=== PATIENT | male | born 2000 | race African-American/Black ===

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

== ENCOUNTER 2020-12-21 00:50 | Emergency (ER) | payer OTHER ==
[~2020-12-21] VITALS: Ht 167.6 cm; Wt 74.8 kg
--- NOTE | ~2020-12-21 | EMS ---
[address] [address] EMS Patient Care Report Name: CORETTA CHIRINOS Room #: DEP SALAS Parsons#: [id number] Admission: 12/21/20 Attend Phys: Discharge: 12/21/20 Date of : [birth year] Report #: [id number] THIS REPORT FOR: //name// Report Transmitted: 12/24/2020 12:35 EMS Care Summary [place], [place]/[facility] Incident [id number] @ 12/21/2020 00:09 Incident Location [address] [place] [address] Patient CORETTA CHIRINOS Male, 20 Years 2000 Patient Address [address] [place] [address] Patient History Asthma, Patient Medications Albuterol, Chief Complaint Asthma Disposition Transported No Lights/[place] Dispatch Reason Breathing Problem Transported To [facility] Narrative M42 arrived on scene to find the patient walking out to the ambulance is obvious respiratory distress. The patient had audible wheezing. Patient said he had a history of asthma and had been without his medication for several days. Patient said he felt short of breath all day. Patient was placed on a breathing treatment. After several minutes the patient said he felt like he was able to breath better, but still felt short of breath. Patient still had [address] [address] EMS Patient Care Report Name: CORETTA CHIRINOS Room #: DEP Issa#: [id number] Admission: 12/21/20 Attend Phys: Discharge: 12/21/20 Date of : [birth year] Report #: [id number] wheezing after the treatment and was given a second treatment of albuterol. Patient was moved to the cot and secured with seat belts. En route to the hospital the patient felt like he was able to breath easier but still had wheezing. M42 arrived on scene of the hospital and patient care was transferred to the RN. Initial Vitals @00:34P: 131,CO: 2,SpO2: 98, @00:26P: 116,BP: 151/85,CO: 2,SpO2: 100, @00:31P: 137,R: 20,BP: 100/69,Pain: 0/10,GCS: 15,CO: 2,SpO2: 100,Revised Trauma: 12, @00:18P: 120,R: 26,BP: 139/86,Pain: 0/10,GCS: 15,SpO2: 98,Revised Trauma: 12, Assessments @00:14MENTAL:No Abnormalities,SKIN:No Abnormalities,HEENT:Head/Face: No Abnormalities,Eyes: No Abnormalities,Neck/Airway: No Abnormalities,LUNG SOUNDS:ABDOMEN:PELVIS//GI:No Abnormalities,EXTREMITIES:Left Arm: No Abnormalities,Right Arm: No Abnormalities,Left Leg: No Abnormalities,Right Leg: No Abnormalities,PULSE:NEURO:No Abnormalities,@00:24MENTAL:No Abnormalities,SKIN:No Abnormalities,HEENT:Head/Face: No Abnormalities,Eyes: No Abnormalities,Neck/Airway: No Abnormalities,LUNG SOUNDS:General: No Abnormalities,Left Upper: No Abnormalities,Right Upper: No Abnormalities,Left Lower: No Abnormalities,Right Lower: No Abnormalities,ABDOMEN:General: No Abnormalities,Left Upper: No Abnormalities,Right Upper: No Abnormalities,Left Lower: No Abnormalities,Right Lower: No Abnormalities,PELVIS//GI:No Abnormalities,EXTREMITIES:Left Arm: No Abnormalities,Right Arm: No Abnormalities,Left Leg: No Abnormalities,Right Leg: No Abnormalities,PULSE:NEURO:No Abnormalities, Impression Asthma Procedures @00:14ALS AssessmentResponse: UnchangedSucceeded@00:16Albuterol - 5 Milligrams (mg) - NebulizedResponse: Improved@00:16Oxygen FlowRate: 8 Device: Nebulizer Response: ImprovedSucceeded@00:34Saline Lock 10cc (20 ga) Site: Antecubital-RightResponse: UnchangedSucceeded@00:39Solu-Medrol - 125 Milligrams (mg) - Intravenous (IV)Response: Unchanged Timeline 00:08,Call Received 00:08,Dispatch Notified 00:09,Dispatched 00:10,En Route 00:13,On Scene 00:14,At Patient [address] [address] EMS Patient Care Report Name: CHIRINOSCORETTA Room #: DEP SALAS Parsons#: [id number] Admission: 12/21/20 Attend Phys: Discharge: 12/21/20 Date of : [birth year] Report #: [id number] 00:14,ALS Assessment,Response: UnchangedSucceeded, 00:16,Albuterol - 5 Milligrams (mg) - Nebulized,Response: Improved 00:16,Oxygen FlowRate: 8 Device: Nebulizer Response: ImprovedSucceeded, 00:18,BP: 139/86 M,PULSE: 120,RR: 26 R,SPO2: 98 Ox,ETCO2: ,BG: ,PAIN: 0,GCS: 15, 00:26,BP: 151/85 M,PULSE: 116,RR: R,SPO2: 100 Ox,ETCO2: ,BG: ,PAIN: ,GCS: , 00:31,BP: 100/69 M,PULSE: 137,RR: 20 R,SPO2: 100 Ox,ETCO2: ,BG: ,PAIN: 0,GCS: 15, 00:33,Depart Scene 00:34,BP: / M,PULSE: 131,RR: R,SPO2: 98 Ox,ETCO2: ,BG: ,PAIN: ,GCS: , 00:34,Saline Lock 10cc 20 ga Site: Antecubital-Right,Response: UnchangedSucceeded, 00:39,Solu-Medrol - 125 Milligrams (mg) - Intravenous (IV),Response: Unchanged 00:47,At Destination 01:08,Call Closed Disclaimer [email or web address] Copyright 2020 [employer] This EMS Care Summary contains data elements from the applicable legal record (which may be displayed differently). It is designed to provide pertinent information for the following purposes: continuity of care, clinical quality, and state data reporting. The complete legal record is available to ED staff and administrators of the receiving hospital in [employer]'s Patient Tracker. All data is provided "as is."
[2020-12-21 01:35] LABS: ABSOLUTE NEUTROPHILS 6.3 thou/uL (1.4-8.2); BASOPHILS 1.2 % (0.0-2.0); EOSINOPHILS 8.9 % (0.0-3.0); HEMATOCRIT 43.8 % (42.0-52.0); HEMOGLOBIN 14.2 gm/dL (14.0-18.0); LYMPHOCYTES 30.4 % (24.0-44.0); MCH 28.4 pg (26.0-34.0); MCHC 32.3 g/dL (28.0-37.0); MCV 87.7 fL (80.0-100.0); MONOCYTES 9.1 % (1.0-8.0); PLATELET COUNT 327 thou/uL (150-400); POLYS 50.4 % (36.0-66.0); RBC 4.99 mil/uL (4.50-6.00); RDW 15.1 % (10.5-14.5); WBC 12.4 thou/uL (4.0-11.0)
[2020-12-21 01:42] LABS: CALCIUM 8.7 mg/dL (8.5-10.1); POTASSIUM 3.4 mmol/L (3.5-5.1)
[2020-12-21] MEDS ORDERED: ALBUTEROL2.5 MG/31 INH (02:33)
[2020-12-21] MEDS ORDERED: PREDNISONE 20 M20 MG PO (02:33)
[2020-12-21] MEDS ORDERED: PROAIR HFA8.5 GM INH (02:33)
[2020-12-21 03:54] VITALS: BP 119/70
== END 2020-12-21 03:56 | disposition home or self-care (01) ==
LOC: ER 00:50
PROVIDERS: Emergency Medicine
DX: J45.901 Unspecified asthma with (acute) exacerbation (principal); Z20.822 Contact with and (suspected) exposure to COVID-19; F17.210 Nicotine dependence, cigarettes, uncomplicated; Z91.013 Allergy to seafood